=== PATIENT | male | born 2000 | race Caucasian/White ===

== ENCOUNTER 2023-05-05 12:22 | Inpatient (IN) ==
--- NOTE | 2023-05-05 12:33 | Emergency Department Note ---
History of Present Illness General Chief complaint: Rash Stated complaint: RASH ACROSS CHEST LOOKS LIKE CHICKEN POX Time Seen by Provider: 05/05/23 12:32 History of Present Illness This is a 23-year-old male that presents to the emergency department via private vehicle with complaints of "rash across chest, trouble breathing". Patient notes that when the smoke from [place] was present in the air here locally in the recent past he noted he had some breathing troubles. He then notes over the past 3 days he feels like he has had some trouble breathing. He describes it as feeling as if "someone sitting on chest". The patient notes that recently he was walking home from work, took the dog outside and then fell on the floor. He notes his mother noted he had some trouble breathing. Patient also noted that there was question if maybe he had was having a panic attack but he notes he did not seem anxious at that time. The patient denies any history of NE or PE. There is no fever or cough. No preceding illness. Patient denies any pertinent past medical history, surgeries or allergies. Home Medications Medication Instructions Recorded Confirmed Type dicyclomine 10 mg capsule 10 mg PO QID PRN Abdominal Pain 05/05/23 05/05/23 History fluoxetine 20 mg capsule 20 mg PO QAM 05/05/23 05/05/23 History hydroxyzine pamoate 25 mg capsule 25 mg PO TID PRN Anxiety 05/05/23 05/05/23 History multivitamin 1 tab PO DAILY 05/05/23 05/05/23 History Allergies Allergy/AdvReac Type Severity Reaction Status Date / Time bee venom protein (honey bee) Allergy Unknown Verified 05/22/20 13:33 Past Med/Surg History Medical History ADD (attention deficit disorder) Mood disorder Surgical History History of tonsillectomy and adenoidectomy Family History (Updated 05/05/23 @ 16:06 by Mae Portillo PA-C) Grandfather (Paternal) Heart disease suspected NE age 50's Other Depression Social History Smoking Status: Former smoker Hx Alcohol Use: No Hx Substance Use: Yes (Vapes medical marijuana daily) Prescribed Medications: Marijuana Preferred Language: Syriac Communication Ability: Effective Web Content Editor Required: No Beliefs That Will Affect Care: None Current Living Situation: Alone Other Information That Helps Us Care for You: No Feels Safe at Home: Yes Safety Concerns: Feels Safe At This Time Assistive Devices: None Review of Systems A total of 10 systems reviewed and were otherwise negative Physical Exam Vital Signs Vital Signs - 24 hr 05/05/23 12:29 05/05/23 14:00 05/05/23 14:23 Temperature 37 C Temperature Source Temporal Artery Scan Pulse Rate 86 80 83 Pulse Rate from SpO2 Sensor Pulse Rhythm Regular Pulse Strength Normal Respiratory Rate 20 20 14 Respiratory Effort / Characteristics Non-Labored Spontaneous Respiratory Depth Normal Respiratory Pattern Regular Blood Pressure 120/90 111/80 Blood Pressure Mean 100 90 Blood Pressure Position Sitting Pulse Oximetry 97 98 Oxygen Delivery Method Room Air Sepsis Recent Fever Within 48 Hours No Sepsis New/Unexplained Change in Mental Status No Sepsis Action Taken by Nursing No Action Required 05/05/23 14:23 05/05/23 14:30 05/05/23 14:30 Temperature Temperature Source Pulse Rate 79 Pulse Rate from SpO2 Sensor 83 Pulse Rhythm Pulse Strength Respiratory Rate 24 Respiratory Effort / Characteristics Respiratory Depth Respiratory Pattern Blood Pressure 111/80 125/72 Blood Pressure Mean 90 89 Blood Pressure Position Pulse Oximetry 98 Oxygen Delivery Method Sepsis Recent Fever Within 48 Hours Sepsis New/Unexplained Change in Mental Status Sepsis Action Taken by Nursing 05/05/23 15:00 05/05/23 15:00 05/05/23 15:30 Temperature Temperature Source Pulse Rate 71 Pulse Rate from SpO2 Sensor 73 Pulse Rhythm Pulse Strength Respiratory Rate 14 Respiratory Effort / Characteristics Respiratory Depth Respiratory Pattern Blood Pressure 115/64 102/63 Blood Pressure Mean 81 76 Blood Pressure Position Pulse Oximetry 99 Oxygen Delivery Method Sepsis Recent Fever Within 48 Hours Sepsis New/Unexplained Change in Mental Status Sepsis Action Taken by Nursing 05/05/23 15:30 Temperature Temperature Source Pulse Rate 89 Pulse Rate from SpO2 Sensor 82 Pulse Rhythm Pulse Strength Respiratory Rate 21 Respiratory Effort / Characteristics Respiratory Depth Respiratory Pattern Blood Pressure Blood Pressure Mean Blood Pressure Position Pulse Oximetry 95 Oxygen Delivery Method Sepsis Recent Fever Within 48 Hours Sepsis New/Unexplained Change in Mental Status Sepsis Action Taken by Nursing VITAL SIGNS - Vital signs and triage nursing notes were reviewed. Stable and afebrile. GENERAL -23-year-old male appearing his stated age who is in no acute distress. Communicates well with provider and answers questions appropriately. SKIN -small, punctate slightly raised erythematous pustules with a small whitish center consistent with a pimple type eruption overlying the chest and upper back. No vesicular component. No skin sloughing. No evidence of cellulitis. No meningeal or petechial rash. HEAD - NC/AT. EYES - PERRL with EOMI bilaterally. Sclera anicteric. EARS - No deformities of external structures noted on gross examination bilaterally. NOSE - Midline and without cyanosis. No epistaxis or purulent drainage noted. MOUTH/OROPHARYNX - Without perioral cyanosis. NECK - Neck with FROM. No nuchal rigidity. LUNGS - Chest wall symmetric without accessory muscle use, intercostals retractions, or central cyanosis. Normal vesicular breath sounds CTA B/L. No wheezes, rales, or rhonchi appreciated. CARDIAC - RRR with S1/S2. No murmur, rubs, or gallops appreciated. EXTREMITIES - No clubbing or peripheral cyanosis. +5/5 strength noted in UE/LE bilaterally. NEUROLOGIC - Cranial nerves II through XII grossly intact. PSYCH - A&O, and cooperates fully with examiner. Pt is very pleasant and interacts well with examiner. Course Administered Medications Potassium Chloride/Sodium Chloride (Normal Saline W/20 Meq Kcl) 20 meq in 1,000 mls @ 100 mls/hr IV .Q10H [facility]; Protocol Stop: 05/06/23 13:59 Last Admin: 05/05/23 19:47 Dose: 100 mls/hr Documented By: CARL Medical Decision Making Laboratory Data 05/05/23 12:58 05/05/23 12:58 Lab Results 05/05/23 05/05/23 05/05/23 Range/Units 12:42 12:58 12:58 WBC 6.87 (4.8-10.8) K/ul RBC 5.71 (4.70-6.10) M/uL Hgb 17.8 (14.0-18.0) g/dl Hct 47.4 (42.0-52.0) % MCV 83.0 (80.0-100.0) fL MCH 31.2 (25.0-34.0) pg MCHC 37.6 H (32.0-36.0) g/dL RDW Std Deviation 36.4 (36.4-46.3) fL RDW Coeff of Pedro 12.1 (11.5-14.5) % Plt Count 247 (130-400) K/uL MPV 11.3 (9.4-12.4) fL Immature Gran % (Auto) 0.1 % Neut % (Auto) 47.6 % Lymph % (Auto) 37.7 % [place] % (Auto) 13.0 % Eos % (Auto) 0.9 % Baso % (Auto) 0.7 % Neut # (Auto) 3.27 (1.40-6.50) K/uL Lymph # (Auto) 2.59 (1.2-3.4) K/uL [place] # (Auto) 0.89 H (0.11-0.59) K/uL Eos # (Auto) 0.06 (0-0.50) K/uL Baso # (Auto) 0.05 (0-0.2) K/uL Immature Gran # (Auto) 0.01 (0.01-0.20) K/uL ESR (0-15) mm/hr PT 13.5 H (9.0-12.0) Seconds INR 1.2 H (0.9-1.1) APTT 28.8 (21.0-31.0) Seconds PTT Ratio 1.0 D-Dimer < 190 (0-500) ug/L FEU Sodium 138 (136-145) mmol/L Potassium 3.6 (3.5-5.1) mmol/L Chloride 104 (98-107) mmol/L Carbon Dioxide 23 (21-32) mmol/L Anion Gap 11 (3-11) BUN 25 H (6-23) mg/dl Creatinine 0.88 (0.6-1.4) mg/dl Est Cr Clr Drug Dosing 96.3 ml/min Est GFR ( Amer) 142.3 ml/min Est GFR (Non-Af Amer) 122.8 ml/min BUN/Creatinine Ratio 28.4 H (10-20) Glucose 94 (70-99(Fasting)) mg/dl Calcium 10.2 (8.6-10.3) mg/dl Magnesium 1.9 (1.7-2.4) mg/dl Total Bilirubin 1.5 H (0.2-1.0) mg/dl AST 23 (13-39) U/L ALT 16 (7-52) U/L Alkaline Phosphatase 69 (34-104) U/L Troponin I High Sens 98.8 H* (0-20) pg/ml C-Reactive Protein < 0.50 (0-0.5) mg/dl Total Protein 7.6 (6.0-8.3) gm/dl Albumin 5.2 H (3.4-5.0) gm/dl Globulin 2.4 L (2.5-4.0) gm/dl Albumin/Globulin Ratio 2.2 H (0.9-2) TSH (0.300-4.500) uIu/ml Adenovirus (PCR) (NotDetected) Anaplasma Smear B. pertussis DNA (PCR) (NotDetected) B.parapertussis DNA PCR (NotDetected) Lyme Disease IgG Ab (Negative) Lyme Disease IgM Ab (Negative) C. pneumoniae DNA (PCR) (NotDetected) Coronavirus OC43 (PCR) (NotDetected) Coronavirus HKU1 (PCR) (NotDetected) Coronavirus 229E (PCR) (NotDetected) SARS-CoV-2 (PCR) (NotDetected) Coronavirus NL63 (PCR) (NotDetected) Human Metapneumovir PCR (NotDetected) Influenza Type A (PCR) (NotDetected) Influenza Type B (PCR) (NotDetected) M. pneumoniae (PCR) (NotDetected) Parainfluenza 1 (PCR) (NotDetected) Parainfluenza 2 (PCR) (NotDetected) Parainfluenza 3 (PCR) (NotDetected) Parainfluenza 4 (PCR) (NotDetected) RSV (PCR) (NotDetected) Entero/Rhino (PCR) (NotDetected) 05/05/23 05/05/23 05/05/23 Range/Units 12:58 12:58 12:58 WBC (4.8-10.8) K/ul RBC (4.70-6.10) M/uL Hgb (14.0-18.0) g/dl Hct (42.0-52.0) % MCV (80.0-100.0) fL MCH (25.0-34.0) pg MCHC (32.0-36.0) g/dL RDW Std Deviation (36.4-46.3) fL RDW Coeff of Pedro (11.5-14.5) % Plt Count (130-400) K/uL MPV (9.4-12.4) fL Immature Gran % (Auto) % Neut % (Auto) % Lymph % (Auto) % [place] % (Auto) % Eos % (Auto) % Baso % (Auto) % Neut # (Auto) (1.40-6.50) K/uL Lymph # (Auto) (1.2-3.4) K/uL [place] # (Auto) (0.11-0.59) K/uL Eos # (Auto) (0-0.50) K/uL Baso # (Auto) (0-0.2) K/uL Immature Gran # (Auto) (0.01-0.20) K/uL ESR 1 (0-15) mm/hr PT (9.0-12.0) Seconds INR (0.9-1.1) APTT (21.0-31.0) Seconds PTT Ratio D-Dimer (0-500) ug/L FEU Sodium (136-145) mmol/L Potassium (3.5-5.1) mmol/L Chloride (98-107) mmol/L Carbon Dioxide (21-32) mmol/L Anion Gap (3-11) BUN (6-23) mg/dl Creatinine (0.6-1.4) mg/dl Est Cr Clr Drug Dosing ml/min Est GFR ( Amer) ml/min Est GFR (Non-Af Amer) ml/min BUN/Creatinine Ratio (10-20) Glucose (70-99(Fasting)) mg/dl Calcium (8.6-10.3) mg/dl Magnesium (1.7-2.4) mg/dl Total Bilirubin (0.2-1.0) mg/dl AST (13-39) U/L ALT (7-52) U/L Alkaline Phosphatase (34-104) U/L Troponin I High Sens (0-20) pg/ml C-Reactive Protein (0-0.5) mg/dl Total Protein (6.0-8.3) gm/dl Albumin (3.4-5.0) gm/dl Globulin (2.5-4.0) gm/dl Albumin/Globulin Ratio (0.9-2) TSH (0.300-4.500) uIu/ml Adenovirus (PCR) (NotDetected) Anaplasma Smear See Comment B. pertussis DNA (PCR) (NotDetected) B.parapertussis DNA PCR (NotDetected) Lyme Disease IgG Ab Negative (Negative) Lyme Disease IgM Ab Negative (Negative) C. pneumoniae DNA (PCR) (NotDetected) Coronavirus OC43 (PCR) (NotDetected) Coronavirus HKU1 (PCR) (NotDetected) Coronavirus 229E (PCR) (NotDetected) SARS-CoV-2 (PCR) (NotDetected) Coronavirus NL63 (PCR) (NotDetected) Human Metapneumovir PCR (NotDetected) Influenza Type A (PCR) (NotDetected) Influenza Type B (PCR) (NotDetected) M. pneumoniae (PCR) (NotDetected) Parainfluenza 1 (PCR) (NotDetected) Parainfluenza 2 (PCR) (NotDetected) Parainfluenza 3 (PCR) (NotDetected) Parainfluenza 4 (PCR) (NotDetected) RSV (PCR) (NotDetected) Entero/Rhino (PCR) (NotDetected) 05/05/23 05/05/23 05/05/23 Range/Units 12:58 14:20 14:49 WBC (4.8-10.8) K/ul RBC (4.70-6.10) M/uL Hgb (14.0-18.0) g/dl Hct (42.0-52.0) % MCV (80.0-100.0) fL MCH (25.0-34.0) pg MCHC (32.0-36.0) g/dL RDW Std Deviation (36.4-46.3) fL RDW Coeff of Pedro (11.5-14.5) % Plt Count (130-400) K/uL MPV (9.4-12.4) fL Immature Gran % (Auto) % Neut % (Auto) % Lymph % (Auto) % [place] % (Auto) % Eos % (Auto) % Baso % (Auto) % Neut # (Auto) (1.40-6.50) K/uL Lymph # (Auto) (1.2-3.4) K/uL [place] # (Auto) (0.11-0.59) K/uL Eos # (Auto) (0-0.50) K/uL Baso # (Auto) (0-0.2) K/uL Immature Gran # (Auto) (0.01-0.20) K/uL ESR (0-15) mm/hr PT (9.0-12.0) Seconds INR (0.9-1.1) APTT (21.0-31.0) Seconds PTT Ratio D-Dimer (0-500) ug/L FEU Sodium (136-145) mmol/L Potassium (3.5-5.1) mmol/L Chloride (98-107) mmol/L Carbon Dioxide (21-32) mmol/L Anion Gap (3-11) BUN (6-23) mg/dl Creatinine (0.6-1.4) mg/dl Est Cr Clr Drug Dosing ml/min Est GFR ( Amer) ml/min Est GFR (Non-Af Amer) ml/min BUN/Creatinine Ratio (10-20) Glucose (70-99(Fasting)) mg/dl Calcium (8.6-10.3) mg/dl Magnesium (1.7-2.4) mg/dl Total Bilirubin (0.2-1.0) mg/dl AST (13-39) U/L ALT (7-52) U/L Alkaline Phosphatase (34-104) U/L Troponin I High Sens 81.0 H* D (0-20) pg/ml C-Reactive Protein (0-0.5) mg/dl Total Protein (6.0-8.3) gm/dl Albumin (3.4-5.0) gm/dl Globulin (2.5-4.0) gm/dl Albumin/Globulin Ratio (0.9-2) TSH 3.320 (0.300-4.500) uIu/ml Adenovirus (PCR) Not Detected (NotDetected) Anaplasma Smear B. pertussis DNA (PCR) Not Detected (NotDetected) B.parapertussis DNA PCR Not Detected (NotDetected) Lyme Disease IgG Ab (Negative) Lyme Disease IgM Ab (Negative) C. pneumoniae DNA (PCR) Not Detected (NotDetected) Coronavirus OC43 (PCR) Not Detected (NotDetected) Coronavirus HKU1 (PCR) Not Detected (NotDetected) Coronavirus 229E (PCR) Not Detected (NotDetected) SARS-CoV-2 (PCR) Not Detected (NotDetected) Coronavirus NL63 (PCR) Not Detected (NotDetected) Human Metapneumovir PCR Not Detected (NotDetected) Influenza Type A (PCR) Not Detected (NotDetected) Influenza Type B (PCR) Not Detected (NotDetected) M. pneumoniae (PCR) Not Detected (NotDetected) Parainfluenza 1 (PCR) Not Detected (NotDetected) Parainfluenza 2 (PCR) Not Detected (NotDetected) Parainfluenza 3 (PCR) Not Detected (NotDetected) Parainfluenza 4 (PCR) Not Detected (NotDetected) RSV (PCR) Not Detected (NotDetected) Entero/Rhino (PCR) Not Detected (NotDetected) Imaging Data Radiologist's Impression: Chest X-Ray 05/05/23 12:42 SINGLE VIEW CHEST CLINICAL HISTORY: Chest pressure. Dyspnea. FINDINGS: An AP, portable, upright chest radiograph is obtained. No prior studies are available for comparison at the time of dictation. The cardiomediastinal silhouette is unremarkable. The lungs and pleural spaces are clear. No pneumothorax is seen. The bony thorax is grossly intact. IMPRESSION: No active disease in the chest. ACT 112: Negative or not required by law. Electronically signed by: Elpidio Valdovinos M.D. 05/05/2023 1:19 PM MDM Narrative Patient was seen and evaluated as above in room D04. Review was performed of triage nursing notes and vital signs. After obtaining a thorough history and physical examination the above work up was performed. Patient presents to us today for assessment of a rash across his back and chest region which appear to be small pimple-like structures. This is not consistent with any type of any concerning infectious or herpetic process. No evidence of SJS or TENS. The patient however does note that over the past few days he has had some chest heav iness/pressure described as if someone is sitting on his chest with associated trouble breathing. On arrival the patient is clinically well-appearing and nontoxic. Vital signs are stable. No history of NE or PE personally. Options of care were discussed with the patient. IV access was established. Chest x-ray obtained and was negative. EKG was obtained. This revealed normal sinus rhythm at a rate of 75 bpm. QTc 404. QRS 90. There is no ST elevation. Mild T wave inversion in aVL as well as V1 and V2. Labs were drawn. Labs reveal no leukocytosis or concerning anemia. INR mildly elevated at 1.2. D-dimer within normal range. There is no tachycardia or hypoxia. Low suspicion for PE overall. There is no emergent metabolic disturbance. BUN mildly elevated at 25. T. bili 1.5. Troponin returned at 98.8. Low suspicion for ACS however did find it reasonable to consider further evaluation and management in the inpatient setting. I do not suspect dissection. In discussing case with hospitalist service, decision was made to also proceed with discussion of the case with cardiology. I spoke with Dr. Hernandes. He came to evaluate the patient and also was able to arrange echocardiogram. Please refer to his note regarding consultation. At this time patient will be admitted to the medicine service for further evaluation and management. Please refer to further documentation regarding his stay. I will note that a repeat troponin was performed while here in the ED and was found to be 81. An order was placed for continuous cardiac monitoring and revealed normal sinus rhythm at a rate of 86 bpm. GCS: 15 In the evaluation and treatment of this patient, the following differential diagnoses were considered: NE, ASC, Dysrhythmia, Angina, Mediastinitis, GERD, Esophagitis, PE, Pneumonia, Bronchitis, Costochondritis, Rib Fracture, Zoster, among others Impression & Plan Chest heaviness, SOB (shortness of breath), Elevated troponin, Rash Discharge Plan Visit Data Chief Complaint: Rash Stated Complaint: RASH ACROSS CHEST LOOKS LIKE CHICKEN POX ED Provider: Lloyd Davenport ED Midlevel Provider: Christopher Chavez Discharge Problem: Chest heaviness, SOB (shortness of breath), Elevated troponin, Rash Patient Disposition: Admitted As Inpatient Condition: Good Discharge Instructions Interventions: ED Discharge Assessment Last Done: 05/05/23 17:10
--- NOTE | 2023-05-05 13:20 | XRay Report ---
SINGLE VIEW CHEST CLINICAL HISTORY: Chest pressure. Dyspnea. FINDINGS: An AP, portable, upright chest radiograph is obtained. No prior studies are available for c omparison at the time of dictation. The cardiomediastinal silhouette is unremarkable. The lungs and p leural spaces are clear. No pneumothorax is seen. The bony thorax is grossly intact. IMPRESSION: No active disease in the chest. ACT 112: Negative or not required by law. Electronically signed by: Elpidio Valdovinos M.D. 05/05/2023 1:19 PM
[2023-05-05 13:28] LABS: Basophils # (auto) 0.05 K/uL (0-0.2); Basophils % (auto) 0.7 %; Eosinophils # (auto) 0.06 K/uL (0-0.50); Eosinophils % (auto) 0.9 %; Hematocrit (blood only) 47.4 % (42.0-52.0); Hemoglobin 17.8 g/dl (14.0-18.0); Immature Granulocytes # (auto) 0.01 K/uL (0.01-0.20); Immature Granulocytes % (auto) 0.1 %; Lymphocytes # (auto) 2.59 K/uL (1.2-3.4); Lymphocytes % (auto) 37.7 %; Mean Corpuscular Hemoglobin 31.2 pg (25.0-34.0); Mean Corpuscular Hgb Conc 37.6 g/dL (32.0-36.0); Mean Platelet Volume 11.3 fL (9.4-12.4); Monocytes # (auto) 0.89 K/uL (0.11-0.59); Neutrophils # (auto) 3.27 K/uL (1.40-6.50); Neutrophils % (auto) 47.6 %; Platelet Count 247 K/uL (130-400); RDW Coefficient of Variation 12.1 % (11.5-14.5); RDW Standard Deviation 36.4 fL (36.4-46.3); Red Blood Count 5.71 M/uL (4.70-6.10); White Blood Count 6.87 K/ul (4.8-10.8)
[2023-05-05 13:44] LABS: Alanine Aminotransferase 16 U/L (7-52); Albumin Globulin Ratio 2.2 (0.9-2); Albumin Level 5.2 gm/dl (3.4-5.0); Alkaline Phosphatase 69 U/L (34-104); Anion Gap 11 (3-11); Aspartate Aminotransferase 23 U/L (13-39); BUN Creatinine Ratio 28.4 (10-20); Bilirubin,Total 1.5 mg/dl (0.2-1.0); Blood Urea Nitrogen 25 mg/dl (6-23); Calcium 10.2 mg/dl (8.6-10.3); Carbon Dioxide 23 mmol/L (21-32); Chloride 104 mmol/L (98-107); Creatinine Clr Calc Pharmacy 96.3 ml/min; Est GFR (African American) 142.3 ml/min; Est GFR (Non-African American) 122.8 ml/min; Globulin 2.4 gm/dl (2.5-4.0); Glucose 94 mg/dl (70-99(Fasting)); Magnesium 1.9 mg/dl (1.7-2.4); Potassium 3.6 mmol/L (3.5-5.1); Sodium 138 mmol/L (136-145); Total Protein 7.6 gm/dl (6.0-8.3)
[2023-05-05 13:51] LABS: D Dimer < 190 ug/L FEU (0-500); INR 1.2 (0.9-1.1); Partial Thromboplastin Time 28.8 Seconds (21.0-31.0); Prothrombin Time 13.5 Seconds (9.0-12.0)
[2023-05-05 13:53] LABS: Troponin I High Sensitivity 98.8 pg/ml (0-20)
[2023-05-05 14:38] LABS: C Reactive Protein < 0.50 mg/dl (0-0.5)
--- NOTE | 2023-05-05 14:48 | History & Physical Report ---
Date of Service May 05, 2023 Assessment & Plan (1) SOB (shortness of breath): (2) Chest heaviness: (3) Elevated troponin: Plan: Patient is a 23-year-old male with PMH ADD, mood disorder presented to ER with complaint of SOB, chest heaviness with exertion x 3 days In ER vitals stable without tachycardia or hypoxia. No leukocytosis. Negative D-dimer. High-sensitivity troponin:98-->81. ESR and CRP negative. Negative Lyme, negative respiratory panel EKG: sinus rhythm rate 75, t wave inversions septal leads. No prior to compare CXR: no acute infiltrate, no pneumothorax noted Anaplasma smear pending DDX: ACS, pericarditis, myocarditis. PE less likely since no hypoxia or tachycardia and negative d-dimer. ACS would not be typical but will rule out Stat Echo pending Trend troponin No current CP or SOB at rest Monitor Vitals Repeat EKG in am Lipid panel in am Drug screen pending Cardiology consult, ordered stat echo (4) Rash: Plan: Scattered papules to chest and back. Does not appear vesicular Likely secondary to heat, sweating Monitor (5) Mood disorder: (6) ADD (attention deficit disorder): Plan: Continue fluoxetine Hold hydroxyzine currently DVT Prophylaxis SCDs Follows with Dominguez Narvaez PA-C, [facility] for routine care Pt was seen and care coordinated with Dr Burgess. See addendum I spent a total of 75 minutes reviewing notes, outpatient records, labs, medication, coordinating, documenting and providing care for this patient excluding time spent in the performance of separately billed services. History of Present Illness Chief Complaint: Shortness of breath Primary Care Provider: Dominguez Narvaez PA-C Patient is a 23-year-old male with PMH ADD, mood disorder presented to ER with complaint of shortness of breath x 3 days. Reports exertional SOB and chest heaviness past 3 days. Patient reports he has been getting very short of breath with minimal walking the past 3 days. 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 Reports past couple days has been out in the heat working all day and has been having fatigue, shortness of breath and chest heaviness. Reports has been having diffuse diaphoresis working out in the heat which is more than he typically has. Yesterday he reports chest heaviness as a 8 out of 10 on pain scale. He states he came home turned on the air conditioning fans and rested and chest heaviness and shortness of breath improved. He states today rates 1 out of 10 on pain scale of chest heaviness/discomfort. Currently at rest patient is denying shortness of breath. Patient states vapes marijuana daily. Since onset of shortness of breath and chest heaviness he has not used past 2 days. Patient denies any other illicit drug use or history IV drug use. He states a couple days ago he noticed red bumps/rash to chest and back that are not pruritic or painful. He reports improvement after showering. Denies any known tick or insect bites however is outside working as a high school combination teacher daily. Reports had childhood vaccinations. Denies any others with similar rashes. Past 2 days with 2 episodes of loose stool per day. No loose stool today. Denies abdominal pain. Reports feels nauseated past few days after drinking and eating while working in the heat. Denies vomiting. Also reports approx 15 pound weight loss over past year. Denies fever/chills, vomiting, constipation, melena, hematochezia, POTTER, di zziness, syncope, vision changes, neck pain, orthopnea, palpitations, cough, sore throat, otalgia, rhinorrhea, abdominal pain, paresthesias, extremity weakness, extremity edema, other rashes, urinary symptoms. Outpatient chart reviewed 01/21/2023: Negative HIV antigen and antibody, Negative hepatitis C antibody Allergies Allergy/AdvReac Type Severity Reaction Status Date / Time bee venom protein (honey bee) Allergy Unknown Verified 05/22/20 13:33 Home Medications Medication Instructions Recorded Confirmed Type dicyclomine 10 mg capsule 10 mg PO QID PRN Abdominal Pain 05/05/23 05/05/23 History fluoxetine 20 mg capsule 20 mg PO QAM 05/05/23 05/05/23 History hydroxyzine pamoate 25 mg capsule 25 mg PO TID PRN Anxiety 05/05/23 05/05/23 History multivitamin 1 tab PO DAILY 05/05/23 05/05/23 History Past Med/Surg History Medical History ADD (attention deficit disorder) Mood disorder Surgical History History of tonsillectomy and adenoidectomy Family History (Updated 05/05/23 @ 16:06 by Mae Portillo PA-C) Grandfather (Paternal) Heart disease suspected [place] age 50's Other Depression Social History Smoking Status: Current every day smoker Hx Alcohol Use: No Hx Substance Use: Yes (Vapes marijuana daily) Prescribed Medications: Marijuana Preferred Language: Armenian Feels Safe at Home: Yes Review of Systems Review of Systems: All systems reviewed & are unremarkable except as noted in HPI & below Physical Exam Physical Exam: General: no acute distress, thin Head: normocephalic, atraumatic Eyes: conjunctiva non-injected, anicteric ENT: normal inspection external ears, nose, mucous membranes moist Neck: supple, trachea midline Lungs: clear, no respiratory distress, no wheezing/rhonchi/rales CV: RRR, no murmur, no pretibial edema Abd: normal BS, soft, non-tender Ext: no cyanosis, no calf tenderness Neuro: A&O x 3, no focal deficits noted, normal affect Skin: +few scattered papules to upper chest and back, skin otherwise warm, dry Results & Data Results & Data Vital Signs (Past 12 Hours) Vital Signs Temp Pulse Resp BP Pulse Ox O2 Del Method 05/05/23 14:00 80 20 111/80 98 05/05/23 12:29 37 C 86 20 120/90 97 Room Air Laboratory Results Short CBC 05/05/23 Range/Units 12:58 WBC 6.87 (4.8-10.8) K/ul Hgb 17.8 (14.0-18.0) g/dl Hct 47.4 (42.0-52.0) % Plt Count 247 (130-400) K/uL BMP 05/05/23 12:58 Sodium 138 Potassium 3.6 Chloride 104 Carbon Dioxide 23 BUN 25 H Creatinine 0.88 Glucose 94 Calcium 10.2 Liver Function 05/05/23 Range/Units 12:58 Total Bilirubin 1.5 H (0.2-1.0) mg/dl AST 23 (13-39) U/L ALT 16 (7-52) U/L Alkaline Phosphatase 69 (34-104) U/L Albumin 5.2 H (3.4-5.0) gm/dl Diagnostic Findings Chest X-Ray 05/05/23 12:42 SINGLE VIEW CHEST CLINICAL HISTORY: Chest pressure. Dyspnea. FINDINGS: An AP, portable, upright chest radiograph is obtained. No prior studies are available for comparison at the time of dictation. The cardiomediast inal silhouette is unremarkable. The lungs and pleural spaces are clear. No pneumothorax is seen. The bony thorax is grossly intact. IMPRESSION: No active disease in the chest. ACT 112: Negative or not required by law. Electronically signed by: Elpidio Valdovinos M.D. 05/05/2023 1:19 PM Supervising Physician Co-Signing Physician Notes Patient is a 23-year-old male with history of ADD, mood disorder and no other significant past medical history presents with history of intermittent chest pain associated with shortness of breath, diaphoresis since 3 days duration. Patient reports chest pain as chest heaviness, worsens with exertion and at times relieved with rest. Also reports fatigue and ongoing weight loss. He admits to vaping marijuana on a daily basis. He noted to develop erythematous, non-itchy rash on his chest, back 2 days ago which has been improving. He denies any tick, insect bite. Also denies fever, chills, nausea, vomiting, abdominal pain, cough, fever, chills. Please review HPI for complete details of presentation. On exam patient is thin, frail, no apparent distress, norm ocephalic/atraumatic, EOMI, normal results, clear to auscultation, S1-S2, no murmur, no pedal edema, abdomen soft, nontender, normal bowel sounds, alert, awake, oriented, grossly no focal deficits, minimally R rash on chest, back. Chest pain, shortness of breath, elevated troponin, weight loss--chest x-ray showed no acute findings. Viral panel negative. Troponin trending down. EKG showed normal sinus rhythm, nonspecific changes in V1 to V2, incomplete right bundle branch block. ESR, CRP normal. Tox screen pending. Echo pending. Discussed with form layer on-call. Lyme screen negative. Anaplasma screen pending. Further management based on results of echo. Consider HIV test, TSH for significant weight loss. Further work-up for weight loss as outpatient. I personally reviewed the record. Patient is interviewed and examined at bedside. Patient's care is coordinated with Mae Portillo PA-C. Please refer to the documentation above for details of patient's presentation and for discussion of other issues.
[2023-05-05 15:29] LABS: Adenovirus PCR Not Detected (NotDetected); Bordetella parapertussis PCR Not Detected (NotDetected); Bordetella pertussis PCR Not Detected (NotDetected); Chlamydia pneumoniae PCR Not Detected (NotDetected); Coronavirus 229E PCR Not Detected (NotDetected); Coronavirus CoV-2 (COVID19)PCR Not Detected (NotDetected); Coronavirus HKU1 PCR Not Detected (NotDetected); Coronavirus NL63 PCR Not Detected (NotDetected); Coronavirus OC43PCR Not Detected (NotDetected); Human Metapneumovirus PCR Not Detected (NotDetected); Influenza A PCR Not Detected (NotDetected); Influenza B PCR Not Detected (NotDetected); Mycoplasma pneumoniae PCR Not Detected (NotDetected); Parainfluenza Virus 1 PCR Not Detected (NotDetected); Parainfluenza Virus 2 PCR Not Detected (NotDetected); Parainfluenza Virus 3 PCR Not Detected (NotDetected); Parainfluenza Virus 4 PCR Not Detected (NotDetected); Respiratory Syncytial VirusPCR Not Detected (NotDetected); Rhinovirus/Enterovirus PCR Not Detected (NotDetected)
[2023-05-05 15:52] LABS: Lyme Ab IgG w/WB Rflx Negative (Negative); Lyme Ab IgM w/WB Rflx Negative (Negative)
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
[2023-05-05] MEDS ORDERED: POLYETHYLENE (MIRALAX) 17 GM PACK PO PRN (17:35)
[2023-05-05] MEDS ORDERED: ACETAMINOPHEN 325 MG TAB PO PRN (17:35)
--- NOTE | 2023-05-05 19:21 | CT Scan Report ---
CT SCAN OF THE CHEST WITHOUT IV CONTRAST CLINICAL HISTORY: Atypical chest pain. Dyspnea. COMPARISON STUDY: Chest x-ray dated 05/05/2023. TECHNIQUE: CT scan of the thorax was performed from the thoracic inlet to the upper abdomen. Images are reviewed in the axial, sagittal, and coronal planes. IV contrast was not administered for this ex amination as per the referring clinician. A dose lowering technique was utilized adhering to the [facility]. CT DOSE: 246.34 mGy.cm FINDINGS: Thyroid: Imaged portions of the thyroid gland are normal in size and attenuation. Thoracic aorta: The thoracic aorta is normal in caliber and demonstrates standard 3-vessel arch anato my. Heart: The heart is normal in size and without pericardial effusion. Lungs and pleural spaces: There is no airspace consolidation or pleural effusion. A 4 mm left lower l obe pulmonary nodule seen on image #187 is of doubtful significance in this age group. The trachea an d central airways are clear. There is mild apical scarring. No pneumothorax is seen. Mediastinum: There is no mediastinal lymphadenopathy. Arianna: Not well assessed without IV contrast. Axillae: There is no axillary lymphadenopathy. Upper abdomen: Partially visualized upper abdominal viscera is within normal limits. Skeletal structures: No lytic or blastic bony lesions are seen. IMPRESSION: No active disease in the chest. ACT 112: Negative or not required by law. Electronically signed by: Elpidio Valdovinos M.D. 05/05/2023 7:19 PM
[2023-05-05] MEDS: NSS + 20MEQ KCL 20 MEQ/1,000 ML BAG IV SCH (19:47)
--- NOTE | 2023-05-05 23:30 | Electrocardiogram Report ---
Test Reason : Blood Pressure : / mmHG Vent. Rate : 075 BPM Atrial Rate : 075 BPM P-R Int : 096 ms QRS Dur : 090 ms QT Int : 362 ms P-R-T Axes : -26 072 076 degrees QTc Int : 404 ms Sinus rhythm with short SC Septal infarct , age undetermined Abnormal ECG No previous ECGs available Confirmed by Feng Chacko ([id number]) on 05/05/2023 11:30:10 PM Referred By: Confirmed By:Feng Chacko
[2023-05-06 02:13] LABS: Amphetamines+Metham, Urine Neg (Neg); Barbiturates, Urine Neg (Neg); Benzodiazepine, Urine Neg (Neg); Cocaine, Urine Neg (Neg); MDMA (Ecstacy), Urine Neg (Neg); Methadone, Urine Neg (Neg); Opiate, Urine Neg (Neg); Phencyclidine, Urine Neg (Neg)
[2023-05-06 02:31] LABS: Hematocrit (blood only) 43.3 % (42.0-52.0); Hemoglobin 15.9 g/dl (14.0-18.0); Mean Corpuscular Hgb Conc 36.7 g/dL (32.0-36.0); Mean Corpuscular Volume 84.4 fL (80.0-100.0); Mean Platelet Volume 11.4 fL (9.4-12.4); Platelet Count 194 K/uL (130-400); RDW Coefficient of Variation 12.2 % (11.5-14.5); RDW Standard Deviation 37.2 fL (36.4-46.3); Red Blood Count 5.13 M/uL (4.70-6.10); White Blood Count 7.85 K/ul (4.8-10.8)
[2023-05-06 03:02] LABS: Albumin Globulin Ratio 1.9 (0.9-2); Albumin Level 4.1 gm/dl (3.4-5.0); Bilirubin,Total 0.9 mg/dl (0.2-1.0); Calcium 8.4 mg/dl (8.6-10.3); Creatinine Clr Calc Pharmacy 84.8 ml/min; Est GFR (African American) 124.1 ml/min; Est GFR (Non-African American) 107.1 ml/min; Globulin 2.2 gm/dl (2.5-4.0); Potassium 4.1 mmol/L (3.5-5.1); Total Protein 6.3 gm/dl (6.0-8.3)
[2023-05-06] MEDS: NSS + 20MEQ KCL 20 MEQ/1,000 ML BAG IV SCH ×3 (05:24→23:29)
--- NOTE | 2023-05-06 07:18 | Electrocardiogram Report ---
Test Reason : Blood Pressure : / mmHG Vent. Rate : 063 BPM Atrial Rate : 063 BPM P-R Int : 116 ms QRS Dur : 090 ms QT Int : 402 ms P-R-T Axes : 000 062 077 degrees QTc Int : 411 ms Normal sinus rhythm Incomplete right bundle branch block Confirmed by Brady Mcmahon ([id number]) on 05/06/2023 7:18:01 AM Referred By: REFERRED SELF Confirmed By:Tanner Mcmhaon
[2023-05-06] MEDS: FLUoxetine HCL 20 MG CAP PO SCH (08:08)
--- NOTE | 2023-05-06 12:32 | Hospitalist Progress Note ---
Date of Service May 06, 2023 Assessment & Plan (1) SOB (shortness of breath): Plan: Shortness of breath with exertion for the last 3 days prior to admission Associated chest tightness but no wheezing No history of asthma and/or COPD Negative D-dimer and negative CT of the chest without contrast Doubt any pulmonary embolism Has been feeling much better We will give cautious amount of IV fluid and repeat chest x-ray tomorrow before sending home (2) Chest heaviness: Plan: As above Resolved (3) Elevated troponin: Plan: Patient is a 23-year-old male with PMH ADD, mood disorder presented to ER with complaint of SOB, chest heaviness with exertion x 3 days In ER vitals stable without tachycardia or hypoxia. No leukocytosis. Negative D-dimer. High-sensitivity troponin:98-->81. ESR and CRP negative. Negative Lyme, negative respiratory panel EKG: sinus rhythm rate 75, t wave inversions septal leads. No prior to compare CXR: no acute infiltrate, no pneumothorax noted Anaplasma smear pending DDX: ACS, pericarditis, myocarditis. PE less likely since no hypoxia or tachycardia and negative d-dimer. ACS would not be typical but will rule out Echo of the heart showed no regional wall motion abnormalities, EF was 60 to 65%, RV is normal in size and function, there is no significant valvular pathology, there is small loculated pericardial fluid adjacent to the right ventricular free wall and right ventricular apex no tamponade Trend troponin-serial troponins remain unremarkable and the EKG did not show any significant change and remains unremarkable to No current CP or SOB at rest Lipid panel in am-unremarkable Drug screen -negative except marijuana and that could be false positive Cardiology consult-appreciate input and recommendation Advised home with cardiology follow-up as an outpatient (4) Rash: Plan: Scattered papules to chest and back. Does not appear vesicular Likely secondary to heat, sweating Monitor-no worsening and rather fades away (5) Mood disorder: (6) ADD (attention deficit disorder): Plan: Continue fluoxetine Hold hydroxyzine currently DVT Prophylaxis SCDs Admission and Anticipated Discharge Date Admission Date: May 05, 2023 Subjective 05/06/2023 The patient was seen and examined in telemetry unit He has been feeling much better following the administration of IV fluid No more chest tightness, shortness of breath or palpitation Review of Systems Review of Systems: All systems reviewed and are unremarkable except as noted below Respiratory: No respiratory symptoms Cardiovascular: Additional Comments: No cardiac symptoms Physical Exam Physical Exam: Lying in bed comfortably Constitutional: + thin; not ill appearing Eyes: PERRL, conjunctivae normal, anicteric sclerae ENMT: external ear and nose normal, oropharynx normal Neck: trachea midline, no thyromegaly Respiratory: no respiratory distress Auscultation: lungs clear to auscultation bilaterally Cardiovascular: Rate/Rhythm: regular rate and regular rhythm; not tachycardic Heart Sounds: normal S1 and normal S2; no murmur Extremities: no edema Gastrointestinal (Abdomen): Inspection/Auscultation: normal bowel sounds; abdomen not distended Percussion/Palpation: abdomen soft; abdomen nontender Musculoskeletal: no cyanosis or clubbing, extremities motor strength 5/5 Neurologic: PERRL, EOMI, accommodation nl, no face palsy, no dysarthria Psychiatric: A+Ox3, euthymic affect Lymphatic: no cervical or axillary lymphadenopathy Results & Data Results & Data Vital Signs (Past 12 Hours) Vital Signs Temp Pulse Pulse Resp BP Pulse Ox O2 Del Method 05/06/23 07:57 36.3 C L 69 19 97/60 L 99 Room Air 05/06/23 07:25 74 05/06/23 03:00 36.3 C L 65 21 105/67 99 Room Air Laboratory Results Short CBC 05/05/23 05/06/23 Range/Units 12:58 02:15 WBC 6.87 7.85 (4.8-10.8) K/ul Hgb 17.8 15.9 (14.0-18.0) g/dl Hct 47.4 43.3 (42.0-52.0) % Plt Count 247 194 (130-400) K/uL BMP 05/05/23 05/06/23 12:58 02:15 Sodium 138 139 Potassium 3.6 4.1 Chloride 104 109 H Carbon Dioxide 23 25 BUN 25 H 31 H Creatinine 0.88 1.00 Glucose 94 85 Calcium 10.2 8.4 L Liver Function 05/05/23 05/06/23 Range/Units 12:58 02:15 Total Bilirubin 1.5 H 0.9 D (0.2-1.0) mg/dl AST 23 19 (13-39) U/L ALT 16 12 (7-52) U/L Alkaline Phosphatase 69 54 (34-104) U/L Albumin 5.2 H 4.1 (3.4-5.0) gm/dl Medications Administered Current Inpatient Medications Acetaminophen (Acetaminophen 325 Mg Tab) 650 mg PO Q4H PRN PRN Reason: Pain or Fever Stop: 06/04/23 17:34 Fluoxetine HCl (Fluoxetine Hcl 20 Mg Cap) 20 mg PO QAM KEVYN Stop: 06/05/23 08:59 Last Admin: 05/06/23 08:08 Dose: 20 mg Potassium Chloride/Sodium Chloride (Normal Saline W/20 Meq Kcl) 20 meq in 1,000 mls @ 100 mls/hr IV .Q10H KEVYN; Protocol Stop: 05/07/23 09:59 Last Admin: 05/06/23 05:24 Dose: 100 mls/hr Polyethylene Glycol (Polyethylene (Miralax) 17 Gm Pack) 17 gm PO DAILY PRN PRN Reason: Constipation Stop: 06/04/23 17:34
--- NOTE | 2023-05-06 12:34 | Cardiology Progress Note ---
Date of Service May 06, 2023 Assessment & Plan (1) SOB (shortness of breath): (2) Chest heaviness: (3) Elevated troponin: (4) Mood disorder: (5) ADD (attention deficit disorder): Plan The patient is doing well. I do not believe any additional cardiac testing is indicated. I would recommend that the patient have follow-up with Dr. Hernandes after discharge. Admission and Anticipated Discharge Date Admission Date: May 05, 2023 Subjective The patient had an uneventful night. Review of Systems Review of Systems: Review of Systems: See HPI for pertinent positives. All other 10 point review of systems are negative. Physical Exam Physical Exam: General: no acute distress and stated age Head: normocephalic, no masses, lesions, tenderness or abnormalities Eyes: conjunctiva are pink and non-injected, sclera clear Neck: supple, no adenopathy, no bruits, normal jugular venous pulse, no hepatojugular reflux Chest: normal shape and normal respiratory effort Lungs: clear to auscultation and percussion Cardiac Exam: - regular rate & rhythm, no murmurs gallops or rubs - normal S1, normal S2 Pulses: 2(+) throughout Abdomen: abdomen soft, non-tender, no abnormal masses and no hepatosplenomegaly Musculoskeletal: no gait disturbance, no joint inflammation, no deforming arthritis Extremities: no edema and no cyanosis Neuro: grossly normal exam Results & Data Vital Signs (Past 12 Hours) Vital Signs Temp Pulse Pulse Resp BP Pulse Ox O2 Del Method 05/06/23 07:57 36.3 C L 69 19 97/60 L 99 Room Air 05/06/23 07:25 74 05/06/23 03:00 36.3 C L 65 21 105/67 99 Room Air Laboratory Results Laboratory Results - last 24 hr 05/05/23 05/05/23 05/05/23 12:42 12:58 12:58 WBC 6.87 RBC 5.71 Hgb 17.8 Hct 47.4 MCV 83.0 MCH 31.2 MCHC 37.6 H RDW Std Deviation 36.4 RDW Coeff of Pedro 12.1 Plt Count 247 MPV 11.3 Immature Gran % (Auto) 0.1 Neut % (Auto) 47.6 Lymph % (Auto) 37.7 Brooke % (Auto) 13.0 Eos % (Auto) 0.9 Baso % (Auto) 0.7 Neut # (Auto) 3.27 Lymph # (Auto) 2.59 Brooke # (Auto) 0.89 H Eos # (Auto) 0.06 Baso # (Auto) 0.05 Immature Gran # (Auto) 0.01 ESR PT 13.5 H INR 1.2 H APTT 28.8 PTT Ratio 1.0 D-Dimer < 190 Sodium 138 Potassium 3.6 Chloride 104 Carbon Dioxide 23 Anion Gap 11 BUN 25 H Creatinine 0.88 Est Cr Clr Drug Dosing 96.3 Est GFR ( Amer) 142.3 Est GFR (Non-Af Amer) 122.8 BUN/Creatinine Ratio 28.4 H Glucose 94 Calcium 10.2 Magnesium 1.9 Total Bilirubin 1.5 H AST 23 ALT 16 Alkaline Phosphatase 69 Troponin I High Sens 98.8 H* C-Reactive Protein < 0.50 Total Protein 7.6 Albumin 5.2 H Globulin 2.4 L Albumin/Globulin Ratio 2.2 H Triglycerides Cholesterol LDL Cholesterol, Calc VLDL Cholesterol, Calc HDL Cholesterol Cholesterol/HDL Ratio TSH Urine Opiates Screen Ur Methadone, Qual Urine Barbiturates Ur Phencyclidine (PCP) U Amphetamin/Meth Scrn MDMA (Ecstasy) Screen U Benzodiazepines Scrn Ur Cocaine Metabolite U Marijuana (THC) Screen U Marijuana THC Carboxy Drug Screen Comment Adenovirus (PCR) Anaplasma Smear Babesia Smear Babesia microti DNA PCR B. pertussis DNA (PCR) B.parapertussis DNA PCR Lyme Disease IgG Ab Lyme Disease IgM Ab C. pneumoniae DNA (PCR) Coronavirus OC43 (PCR) Coronavirus HKU1 (PCR) Coronavirus 229E (PCR) SARS-CoV-2 (PCR) Coronavirus NL63 (PCR) Human Metapneumovir PCR Influenza Type A (PCR) Influenza Type B (PCR) M. pneumoniae (PCR) Parainfluenza 1 (PCR) Parainfluenza 2 (PCR) Parainfluenza 3 (PCR) Parainfluenza 4 (PCR) RSV (PCR) Entero/Rhino (PCR) 05/05/23 05/05/23 05/05/23 12:58 12:58 12:58 WBC RBC Hgb Hct MCV MCH MCHC RDW Std Deviation RDW Coeff of Pedro Plt Count MPV Immature Gran % (Auto) Neut % (Auto) Lymph % (Auto) Brooke % (Auto) Eos % (Auto) Baso % (Auto) Neut # (Auto) Lymph # (Auto) Brooke # (Auto) Eos # (Auto) Baso # (Auto) Immature Gran # (Auto) ESR 1 PT INR APTT PTT Ratio D-Dimer Sodium Potassium Chloride Carbon Dioxide Anion Gap BUN Creatinine Est Cr Clr Drug Dosing Est GFR ( Amer) Est GFR (Non-Af Amer) BUN/Creatinine Ratio Glucose Calcium Magnesium Total Bilirubin AST ALT Alkaline Phosphatase Troponin I High Sens C-Reactive Protein Total Protein Albumin Globulin Albumin/Globulin Ratio Triglycerides Cholesterol LDL Cholesterol, Calc VLDL Cholesterol, Calc HDL Cholesterol Cholesterol/HDL Ratio TSH Urine Opiates Screen Ur Methadone, Qual Urine Barbiturates Ur Phencyclidine (PCP) U Amphetamin/Meth Scrn MDMA (Ecstasy) Screen U Benzodiazepines Scrn Ur Cocaine Metabolite U Marijuana (THC) Screen U Marijuana THC Carboxy Drug Screen Comment Adenovirus (PCR) Anaplasma Smear See Comment Babesia Smear Babesia microti DNA PCR B. pertussis DNA (PCR) B.parapertussis DNA PCR Lyme Disease IgG Ab Negative Lyme Disease IgM Ab Negative C. pneumoniae DNA (PCR) Coronavirus OC43 (PCR) Coronavirus HKU1 (PCR) Coronavirus 229E (PCR) SARS-CoV-2 (PCR) Coronavirus NL63 (PCR) Human Metapneumovir PCR Influenza Type A (PCR) Influenza Type B (PCR) M. pneumoniae (PCR) Parainfluenza 1 (PCR) Parainfluenza 2 (PCR) Parainfluenza 3 (PCR) Parainfluenza 4 (PCR) RSV (PCR) Entero/Rhino (PCR) 05/05/23 05/05/23 05/05/23 12:58 14:20 14:49 WBC RBC Hgb Hct MCV MCH MCHC RDW Std Deviation RDW Coeff of Pedro Plt Count MPV Immature Gran % (Auto) Neut % (Auto) Lymph % (Auto) Brooke % (Auto) Eos % (Auto) Baso % (Auto) Neut # (Auto) Lymph # (Auto) Brooke # (Auto) Eos # (Auto) Baso # (Auto) Immature Gran # (Auto) ESR PT INR APTT PTT Ratio D-Dimer Sodium Potassium Chloride Carbon Dioxide Anion Gap BUN Creatinine Est Cr Clr Drug Dosing Est GFR ( Amer) Est GFR (Non-Af Amer) BUN/Creatinine Ratio Glucose Calcium Magnesium Total Bilirubin AST ALT Alkaline Phosphatase Troponin I High Sens 81.0 H* D C-Reactive Protein Total Protein Albumin Globulin Albumin/Globulin Ratio Triglycerides Cholesterol LDL Cholesterol, Calc VLDL Cholesterol, Calc HDL Cholesterol Cholesterol/HDL Ratio TSH 3.320 Urine Opiates Screen Ur Methadone, Qual Urine Barbiturates Ur Phencyclidine (PCP) U Amphetamin/Meth Scrn MDMA (Ecstasy) Screen U Benzodiazepines Scrn Ur Cocaine Metabolite U Marijuana (THC) Screen U Marijuana THC Carboxy Drug Screen Comment Adenovirus (PCR) Not Detected Anaplasma Smear Babesia Smear Babesia microti DNA PCR B. pertussis DNA (PCR) Not Detected B.parapertussis DNA PCR Not Detected Lyme Disease IgG Ab Lyme Disease IgM Ab C. pneumoniae DNA (PCR) Not Detected Coronavirus OC43 (PCR) Not Detected Coronavirus HKU1 (PCR) Not Detected Coronavirus 229E (PCR) Not Detected SARS-CoV-2 (PCR) Not Detected Coronavirus NL63 (PCR) Not Detected Human Metapneumovir PCR Not Detected Influenza Type A (PCR) Not Detected Influenza Type B (PCR) Not Detected M. pneumoniae (PCR) Not Detected Parainfluenza 1 (PCR) Not Detected Parainfluenza 2 (PCR) Not Detected Parainfluenza 3 (PCR) Not Detected Parainfluenza 4 (PCR) Not Detected RSV (PCR) Not Detected Entero/Rhino (PCR) Not Detected 05/05/23 05/06/23 05/06/23 20:09 01:21 01:21 WBC RBC Hgb Hct MCV MCH MCHC RDW Std Deviation RDW Coeff of Pedro Plt Count MPV Immature Gran % (Auto) Neut % (Auto) Lymph % (Auto) Brooke % (Auto) Eos % (Auto) Baso % (Auto) Neut # (Auto) Lymph # (Auto) Brooke # (Auto) Eos # (Auto) Baso # (Auto) Immature Gran # (Auto) ESR PT INR APTT PTT Ratio D-Dimer Sodium Potassium Chloride Carbon Dioxide Anion Gap BUN Creatinine Est Cr Clr Drug Dosing Est GFR ( Amer) Est GFR (Non-Af Amer) BUN/Creatinine Ratio Glucose Calcium Magnesium Total Bilirubin AST ALT Alkaline Phosphatase Troponin I High Sens 59.6 H* D C-Reactive Protein Total Protein Albumin Globulin Albumin/Globulin Ratio Triglycerides Cholesterol LDL Cholesterol, Calc VLDL Cholesterol, Calc HDL Cholesterol Cholesterol/HDL Ratio TSH Urine Opiates Screen Neg Ur Methadone, Qual Neg Urine Barbiturates Neg Ur Phencyclidine (PCP) Neg U Amphetamin/Meth Scrn Neg MDMA (Ecstasy) Screen Neg U Benzodiazepines Scrn Neg Ur Cocaine Metabolite Neg U Marijuana (THC) Screen Pos H U Marijuana THC Carboxy Pending Drug Screen Comment Pending Adenovirus (PCR) Anaplasma Smear Babesia Smear Babesia microti DNA PCR B. pertussis DNA (PCR) B.parapertussis DNA PCR Lyme Disease IgG Ab Lyme Disease IgM Ab C. pneumoniae DNA (PCR) Coronavirus OC43 (PCR) Coronavirus HKU1 (PCR) Coronavirus 229E (PCR) SARS-CoV-2 (PCR) Coronavirus NL63 (PCR) Human Metapneumovir PCR Influenza Type A (PCR) Influenza Type B (PCR) M. pneumoniae (PCR) Parainfluenza 1 (PCR) Parainfluenza 2 (PCR) Parainfluenza 3 (PCR) Parainfluenza 4 (PCR) RSV (PCR) Entero/Rhino (PCR) 05/06/23 05/06/23 05/06/23 02:15 02:15 02:15 WBC 7.85 RBC 5.13 Hgb 15.9 Hct 43.3 MCV 84.4 MCH 31.0 MCHC 36.7 H RDW Std Deviation 37.2 RDW Coeff of Pedro 12.2 Plt Count 194 MPV 11.4 Immature Gran % (Auto) Neut % (Auto) Lymph % (Auto) Brooke % (Auto) Eos % (Auto) Baso % (Auto) Neut # (Auto) Lymph # (Auto) Brooke # (Auto) Eos # (Auto) Baso # (Auto) Immature Gran # (Auto) ESR PT INR APTT PTT Ratio D-Dimer Sodium 139 Potassium 4.1 Chloride 109 H Carbon Dioxide 25 Anion Gap 5 BUN 31 H Creatinine 1.00 Est Cr Clr Drug Dosing 84.8 Est GFR ( Amer) 124.1 Est GFR (Non-Af Amer) 107.1 BUN/Creatinine Ratio 31.0 H Glucose 85 Calcium 8.4 L Magnesium Total Bilirubin 0.9 D AST 19 ALT 12 Alkaline Phosphatase 54 Troponin I High Sens 49.3 H D C-Reactive Protein Total Protein 6.3 Albumin 4.1 Globulin 2.2 L Albumin/Globulin Ratio 1.9 Triglycerides 53 Cholesterol 106 LDL Cholesterol, Calc 42 VLDL Cholesterol, Calc 11 HDL Cholesterol 53 Cholesterol/HDL Ratio 2.0 TSH Urine Opiates Screen Ur Methadone, Qual Urine Barbiturates Ur Phencyclidine (PCP) U Amphetamin/Meth Scrn MDMA (Ecstasy) Screen U Benzodiazepines Scrn Ur Cocaine Metabolite U Marijuana (THC) Screen U Marijuana THC Carboxy Drug Screen Comment Adenovirus (PCR) Anaplasma Smear Babesia Smear Babesia microti DNA PCR B. pertussis DNA (PCR) B.parapertussis DNA PCR Lyme Disease IgG Ab Lyme Disease IgM Ab C. pneumoniae DNA (PCR) Coronavirus OC43 (PCR) Coronavirus HKU1 (PCR) Coronavirus 229E (PCR) SARS-CoV-2 (PCR) Coronavirus NL63 (PCR) Human Metapneumovir PCR Influenza Type A (PCR) Influenza Type B (PCR) M. pneumoniae (PCR) Parainfluenza 1 (PCR) Parainfluenza 2 (PCR) Parainfluenza 3 (PCR) Parainfluenza 4 (PCR) RSV (PCR) Entero/Rhino (PCR) 05/06/23 05/06/23 07:56 07:56 WBC RBC Hgb Hct MCV MCH MCHC RDW Std Deviation RDW Coeff of Pedro Plt Count MPV Immature Gran % (Auto) Neut % (Auto) Lymph % (Auto) Brooke % (Auto) Eos % (Auto) Baso % (Auto) Neut # (Auto) Lymph # (Auto) Brooke # (Auto) Eos # (Auto) Baso # (Auto) Immature Gran # (Auto) ESR PT INR APTT PTT Ratio D-Dimer Sodium Potassium Chloride Carbon Dioxide Anion Gap BUN Creatinine Est Cr Clr Drug Dosing Est GFR ( Amer) Est GFR (Non-Af Amer) BUN/Creatinine Ratio Glucose Calcium Magnesium Total Bilirubin AST ALT Alkaline Phosphatase Troponin I High Sens C-Reactive Protein Total Protein Albumin Globulin Albumin/Globulin Ratio Triglycerides Cholesterol LDL Cholesterol, Calc VLDL Cholesterol, Calc HDL Cholesterol Cholesterol/HDL Ratio TSH Urine Opiates Screen Ur Methadone, Qual Urine Barbiturates Ur Phencyclidine (PCP) U Amphetamin/Meth Scrn MDMA (Ecstasy) Screen U Benzodiazepines Scrn Ur Cocaine Metabolite U Marijuana (THC) Screen U Marijuana THC Carboxy Drug Screen Comment Adenovirus (PCR) Anaplasma Smear See Comment Babesia Smear See Comment Babesia microti DNA PCR Pending B. pertussis DNA (PCR) B.parapertussis DNA PCR Lyme Disease IgG Ab Lyme Disease IgM Ab C. pneumoniae DNA (PCR) Coronavirus OC43 (PCR) Coronavirus HKU1 (PCR) Coronavirus 229E (PCR) SARS-CoV-2 (PCR) Coronavirus NL63 (PCR) Human Metapneumovir PCR Influenza Type A (PCR) Influenza Type B (PCR) M. pneumoniae (PCR) Parainfluenza 1 (PCR) Parainfluenza 2 (PCR) Parainfluenza 3 (PCR) Parainfluenza 4 (PCR) RSV (PCR) Entero/Rhino (PCR) Medications Administered Current Inpatient Medications Acetaminophen (Acetaminophen 325 Mg Tab) 650 mg PO Q4H PRN PRN Reason: Pain or Fever Stop: 06/04/23 17:34 Fluoxetine HCl (Fluoxetine Hcl 20 Mg Cap) 20 mg PO QAM KEVYN Stop: 06/05/23 08:59 Last Admin: 05/06/23 08:08 Dose: 20 mg Potassium Chloride/Sodium Chloride (Normal Saline W/20 Meq Kcl) 20 meq in 1,000 mls @ 100 mls/hr IV .Q10H KEVYN; Protocol Stop: 05/07/23 09:59 Last Admin: 05/06/23 05:24 Dose: 100 mls/hr Polyethylene Glycol (Polyethylene (Miralax) 17 Gm Pack) 17 gm PO DAILY PRN PRN Reason: Constipation Stop: 06/04/23 17:34
[2023-05-07 06:13] LABS: Basophils # (auto) 0.04 K/uL (0-0.2); Basophils % (auto) 0.7 %; Eosinophils # (auto) 0.17 K/uL (0-0.50); Hematocrit (blood only) 40.6 % (42.0-52.0); Hemoglobin 14.6 g/dl (14.0-18.0); Immature Granulocytes # (auto) 0.02 K/uL (0.01-0.20); Immature Granulocytes % (auto) 0.4 %; Lymphocytes # (auto) 1.66 K/uL (1.2-3.4); Lymphocytes % (auto) 29.5 %; Mean Corpuscular Hemoglobin 31.3 pg (25.0-34.0); Mean Corpuscular Volume 87.1 fL (80.0-100.0); Mean Platelet Volume 11.4 fL (9.4-12.4); Monocytes # (auto) 0.56 K/uL (0.11-0.59); Neutrophils # (auto) 3.17 K/uL (1.40-6.50); Neutrophils % (auto) 56.4 %; Platelet Count 163 K/uL (130-400); RDW Coefficient of Variation 12.2 % (11.5-14.5); Red Blood Count 4.66 M/uL (4.70-6.10); White Blood Count 5.62 K/ul (4.8-10.8)
[2023-05-07 06:38] LABS: Anion Gap 6 (3-11); BUN Creatinine Ratio 27.7 (10-20); Blood Urea Nitrogen 18 mg/dl (6-23); Calcium 8.5 mg/dl (8.6-10.3); Carbon Dioxide 20 mmol/L (21-32); Chloride 112 mmol/L (98-107); Creatinine Clr Calc Pharmacy 133.7 ml/min; Est GFR (African American) > 150.0 ml/min; Est GFR (Non-African American) 139.1 ml/min; Glucose 76 mg/dl (70-99(Fasting)); Potassium 4.3 mmol/L (3.5-5.1); Sodium 138 mmol/L (136-145)
--- NOTE | 2023-05-07 09:47 | XRay Report ---
XR chest 2V PA/lateral HISTORY: 23 years-old Male R/O Pneumonia acute shortness of breath COMPARISON: None TECHNIQUE: PA and lateral views of the chest FINDINGS: Cardiomediastinal and hilar silhouettes are within normal limits. No pneumothorax, pleural effusion, airspace consolidation or pulmonary edema. Bones appear grossly intact. IMPRESSION: Normal exam. ACT 112: Negative or not required by law. The above report was generated using voice recognition software. It may contain grammatical, syntax o r spelling errors. Electronically signed by: Emanuel Bobby M.D. 05/07/2023 9:46 AM
[2023-05-07] MEDS: FLUoxetine HCL 20 MG CAP PO SCH (10:31)
--- NOTE | 2023-05-07 11:02 | Hospitalist Progress Note ---
Date of Service May 07, 2023 Assessment & Plan (1) SOB (shortness of breath): Plan: Shortness of breath with exertion for the last 3 days prior to admission Associated chest tightness but no wheezing No history of asthma and/or COPD Negative D-dimer and negative CT of the chest without contrast Doubt any pulmonary embolism Has been feeling much better We will give cautious amount of IV fluid and repeat chest x-ray tomorrow before sending home He denies any more shortness of breath or chest tightness After hydration he has been feeling a lot better and denies any problem with ambulation He was advised to drink more fluid and will be discharged home this afternoon Repeat chest x-ray today did not show any abnormalities (2) Chest heaviness: Plan: As above Resolved (3) Elevated troponin: Plan: Patient is a 23-year-old male with PMH ADD, mood disorder presented to ER with complaint of SOB, chest heaviness with exertion x 3 days In ER vitals stable without tachycardia or hypoxia. No leukocytosis. Negative D-dimer. High-sensitivity troponin:98-->81. ESR and CRP negative. Negative Lyme, negative respiratory panel EKG: sinus rhythm rate 75, t wave inversions septal leads. No prior to compare CXR: no acute infiltrate, no pneumothorax noted Anaplasma smear pending DDX: ACS, pericarditis, myocarditis. PE less likely since no hypoxia or tachycardia and negative d-dimer. ACS would not be typical but will rule out Echo of the heart showed no regional wall motion abnormalities, EF was 60 to 65%, RV is normal in size and function, there is no significant valvular pathology, there is small loculated pericardial fluid adjacent to the right ventricular free wall and right ventricular apex no tamponade Trend troponin-serial troponins remain unremarkable and the EKG did not show any significant change and remains unremarkable to No current CP or SOB at rest Lipid panel in am-unremarkable Drug screen -negative except marijuana and that could be false positive Cardiology consult-appreciate input and recommendation Advised home with cardiology follow-up as an outpatient No more cardiac symptoms (4) Rash: Plan: Scattered papules to chest and back. Does not appear vesicular Likely secondary to heat, sweating Monitor-no worsening and rather fades away Rash (5) Mood disorder: (6) ADD (attention deficit disorder): Plan: Continue fluoxetine Hold hydroxyzine currently DVT Prophylaxis SCDs Admission and Anticipated Discharge Date Admission Date: May 05, 2023 Subjective 05/06/2023 The patient was seen and examined in telemetry unit He has been feeling much better following the administration of IV fluid No more chest tightness, shortness of breath or palpitation 05/07/2023 The patient was seen and examined in telemetry unit He has been feeling much better and denies any symptoms whatsoever Denies any significant symptoms Has been ambulating without any difficulties Review of Systems Review of Systems: All systems reviewed and are unremarkable except as noted below Respiratory: No respiratory symptoms Cardiovascular: Additional Comments: No cardiac symptoms Physical Exam Physical Exam: Lying in bed comfortably Constitutional: + thin; not ill appearing Eyes: PERRL, conjunctivae normal, anicteric sclerae ENMT: external ear and nose normal, oropharynx normal Neck: trachea midline, no thyromegaly Respiratory: no respiratory distress Auscultation: lungs clear to auscultation bilaterally Cardiovascular: Rate/Rhythm: regular rate and regular rhythm; not tachycardic Heart Sounds: normal S1 and normal S2; no murmur Extremities: no edema Gastrointestinal (Abdomen): Inspection/Auscultation: normal bowel sounds; abdomen not distended Percussion/Palpation: abdomen soft; abdomen nontender Musculoskeletal: no cyanosis or clubbing, extremities motor strength 5/5 Neurologic: PERRL, EOMI, accommodation nl, no face palsy, no dysarthria Psychiatric: A+Ox3, euthymic affect Lymphatic: no cervical or axillary lymphadenopathy Results & Data Results & Data Vital Signs (Past 12 Hours) Vital Signs Temp Pulse Pulse Resp BP Pulse Ox O2 Del Method 05/07/23 09:35 36.4 C L 72 18 102/63 99 Room Air 05/07/23 07:09 61 05/07/23 03:21 36.5 C 61 16 107/60 99 Room Air 05/06/23 23:24 36.2 C L 62 16 118/71 98 Room Air 05/06/23 22:58 71
--- NOTE | 2023-05-07 15:18 | Discharge Summary ---
Date of Service May 07, 2023 Admission HPI Per Admitting Provider Patient is a 23-year-old male with PMH ADD, mood disorder presented to ER with complaint of shortness of breath x 3 days. Reports exertional SOB and chest heaviness past 3 days. Patient reports he has been getting very short of breath with minimal walking the past 3 days. Works outside as a lawn caretaker. Reports past couple days has been out in the heat working all day and has been having fatigue, shortness of breath and chest heaviness. Reports has been having diffuse diaphoresis working out in the heat which is more than he typically has. Yesterday he reports chest heaviness as a 8 out of 10 on pain scale. He states he came home turned on the air conditioning fans and rested and chest heaviness and shortness of breath improved. He states today rates 1 out of 10 on pain scale of chest heaviness/discomfort. Currently at rest patient is denying shortness of breath. Patient states vapes marijuana daily. Since onset of shortness of breath and chest heaviness he has not used past 2 days. Patient denies any other illicit drug use or history IV drug use. He states a couple days ago he noticed red bumps/rash to chest and back that are not pruritic or painful. He reports improvement after showering. Denies any known tick or insect bites however is outside working as a lawn caretaker daily. Reports had childhood vaccinations. Denies any others with similar rashes. Past 2 days with 2 episodes of loose stool per day. No loose stool today. Denies abdominal pain. Reports feels nauseated past few days after drinking and eating while working in the heat. Denies vomiting. Also reports approx 15 pound weight loss over past year. Denies fever/chills, vomiting, constipation, melena, hematochezia, POTTER, dizziness, syncope, vision changes, neck pain, orthopnea, palpitations, cough, sore throat, otalgia, rhinorrhea, abdominal pain, paresthesias, extremity weakness, extremity edema, other rashes, urinary symptoms. Outpatient chart reviewed 01/21/2023: Negative HIV antigen and antibody, Negative hepatitis C antibody Admission Exam Per Admitting Provider Physical Exam: General: no acute distress, thin Head: normocephalic, atraumatic Eyes: conjunctiva non-injected, anicteric ENT: normal inspection external ears, nose, mucous membranes moist Neck: supple, trachea midline Lungs: clear, no respiratory distress, no wheezing/rhonchi/rales CV: RRR, no murmur, no pretibial edema Abd: normal BS, soft, non-tender Ext: no cyanosis, no calf tenderness Neuro: A&O x 3, no focal deficits noted, normal affect Skin: +few scattered papules to upper chest and back, skin otherwise warm, dry Principal Diagnosis Shortness of breath-no apparent cause found and resolved, Mildly elevated troponin-no ACS, ADD Discharge Exam Lying in bed comfortably Constitutional + thin; not ill appearing Eyes PERRL, conjunctivae normal, anicteric sclerae ENMT external ear and nose normal, oropharynx normal Neck trachea midline, no thyromegaly Respiratory no respiratory distress Auscultation: lungs clear to auscultation bilaterally Cardiovascular Rate/Rhythm: regular rate and regular rhythm; not tachycardic Heart Sounds: normal S1 and normal S2; no murmur Extremities: no edema Gastrointestinal (Abdomen) Inspection/Auscultation: normal bowel sounds; abdomen not distended Percussion/Palpation: abdomen soft; abdomen nontender Musculoskeletal no cyanosis or clubbing, extremities motor strength 5/5 Neurologic PERRL, EOMI, accommodation nl, no face palsy, no dysarthria Psychiatric A+Ox3, euthymic affect Lymphatic no cervical or axillary lymphadenopathy Discharge Data Allergies Allergy/AdvReac Type Severity Reaction Status Date / Time bee venom protein (honey bee) Allergy Unknown Verified 05/22/20 13:33 Consultations 05/05/23 14:34 ED Decision to Admit Stat 05/05/23 17:35 Consult Cardiology Routine Ordered Studies 05/05/23 17:01 CT chest diagnostic wo con Urgent Hospital Course (1) SOB (shortness of breath): Shortness of breath with exertion for the last 3 days prior to admission Associated chest tightness but no wheezing No history of asthma and/or COPD Negative D-dimer and negative CT of the chest without contrast Doubt any pulmonary embolism Has been feeling much better We will give cautious amount of IV fluid and repeat chest x-ray tomorrow before sending home He denies any more shortness of breath or chest tightness After hydration he has been feeling a lot better and denies any problem with ambulation He was advised to drink more fluid and will be discharged home this afternoon Repeat chest x-ray today did not show any abnormalities (2) Chest heaviness: As above Resolved (3) Elevated troponin: Patient is a 23-year-old male with PMH ADD, mood disorder presented to ER with complaint of SOB, chest heaviness with exertion x 3 days In ER vitals stable without tachycardia or hypoxia. No leukocytosis. Negative D-dimer. High-sensitivity troponin:98-->81. ESR and CRP negative. Negative Lyme, negative respiratory panel EKG: sinus rhythm rate 75, t wave inversions septal leads. No prior to compare CXR: no acute infiltrate, no pneumothorax noted Anaplasma smear pending DDX: ACS, pericarditis, myocarditis. PE less likely since no hypoxia or tachycardia and negative d-dimer. ACS would not be typical but will rule out Echo of the heart showed no regional wall motion abnormalities, EF was 60 to 65%, RV is normal in size and function, there is no significant valvular pathology, there is small loculated pericardial fluid adjacent to the right ventricular free wall and right ventricular apex no tamponade Trend troponin-serial troponins remain unremarkable and the EKG did not show any significant change and remains unremarkable to No current CP or SOB at rest Lipid panel in am-unremarkable Drug screen -negative except marijuana and that could be false positive Cardiology consult-appreciate input and recommendation Advised home with cardiology follow-up as an outpatient No more cardiac symptoms (4) Rash: Scattered papules to chest and back. Does not appear vesicular Likely secondary to heat, sweating Monitor-no worsening and rather fades away Rash (5) Mood disorder: (6) ADD (attention deficit disorder): Continue fluoxetine Hold hydroxyzine currently DVT Prophylaxis SCDs Total Time Total Time Spent Total Time Spent (In Minutes): 35 minutes Discharge Plan Discharge Items Patient Disposition: Home - Self-Care Reason For Visit: sob Discharge Diagnosis: Shortness of breath-no apparent cause found and resolved, Mildly elevated troponin-no ACS, ADD Condition on Discharge: Good Activity: Resume your previous activity Non-emergency contact: Primary Care Provider Call non-emergency contact if: you have any medication questions and your symptoms worsen Follow-up/Referrals: Dominguez Narvaez PA-C [Primary Care Provider] - (Your doctor's office will give you a call with an appointment within 7 days) Diet: Regular Addtl Attending Provider Instructions: Please take precautions to avoid falls Try to drink more fluid Please keep appointments with your healthcare providers Pending Studies at Discharge: Yes Studies:: Babesia PCR test Stand-Alone Forms: My [facility], Work/School Release, Smoking Cessation Medications and DC Order Prescriptions: Continued multivitamin Tablet 1 tab PO DAILY fluoxetine 20 mg capsule 20 mg PO QAM dicyclomine 10 mg capsule 10 mg PO QID PRN (Reason: Abdominal Pain) hydroxyzine pamoate 25 mg capsule 25 mg PO TID PRN (Reason: Anxiety) Discharge Orders: Discharge Order (Routine); Ordered 05/07/23 Ordered By: Talia Yusuf/Other Patient Handouts: ED Dehydration (Adult) Admission Data Admit Date/Time: 05/05/23 15:41 Attending Provider: Talia Huitron Admit Provider: Pino Burgess Primary Care Provider: Dominguez Narvaez Other Providers: Pino Burgess ; Yunior Hernandes Other Interventions: Discharge Summary Assessment (RN) Last Done: 05/07/23 12:00
[2023-05-08 14:53] LABS: Marijuana Quant, GCMS Urine 1177 ng/mL (<5)
[2023-05-10 07:13] LABS: Babesia microti DNA Not Detected (Not Detected)
== END 2023-05-07 13:25 | disposition home or self-care (01) | DRG 204 ==
LOC: ED 12:22 → SUATTDRO 15:41 → 4W 15:41